=== PATIENT | male | born 1985 | race Caucasian/White ===

== ENCOUNTER → 2017-07-20 | Outpatient (CLI) | payer OTHER ==
[2017-07-20 11:45] LABS: MEAN CORPUSCULAR HEMOGLOBIN 35.6 pg (27.0-33.0); MEAN CORPUSCULAR HGB CONC 35.6 g/dl (32.0-36.5); RED CELL DISTRIBUTION WIDTH 11.9 % (11.5-14.5)
[2017-07-20 12:20] LABS: ALBUMIN 3.9 GM/DL (3.2-5.2); ALBUMIN/GLOBULIN RATIO 1.22 (1.00-1.93); ALKALINE PHOSPHATASE 52 U/L (45-117); ALT/SGPT 26 U/L (12-78); ANION GAP 7 MEQ/L (8-16); AST/SGOT 17 U/L (15-37); BILIRUBIN,TOTAL 0.3 MG/DL (0.2-1.0); BLOOD UREA NITROGEN 20 MG/DL (7-18); CALCIUM LEVEL 8.8 MG/DL (8.5-10.1); CARBON DIOXIDE LEVEL 28 MEQ/L (21-32); CHLORIDE LEVEL 106 MEQ/L (98-107); CHOLESTEROL LEVEL 196 MG/DL (<200); CREATININE FOR GFR 1.23 MG/DL (0.70-1.30); GLOMERULAR FILTRATION RATE > 60.0 (>60); GLUCOSE, FASTING 90 MG/DL (70-105); POTASSIUM SERUM 4.4 MEQ/L (3.5-5.1); SODIUM LEVEL 141 MEQ/L (136-145); TOTAL PROTEIN 7.1 GM/DL (6.4-8.2); TRIGLYCERIDES LEVEL 119 MG/DL (<150)
--- NOTE | 2017-07-20 20:47 | ECGEPIP ---
Stationary ECG Study [facility] Test Date: 2017-07-20 Pat Name: CHET SINGH Department: Room: - Gender: M Finance Teacher: JAI : 1985 Requested By: Sylvia Mock Order Number: [id number] Reading MD: Scott Catalan Measurements Intervals [place] Rate: 57 P: 66 [place]: 169 QRS: 89 QRSD: 106 T: 64 QT: 391 QTc: 383 Interpretive Statements SINUS BRADYCARDIA INCOMPLETE RIGHT BUNDLE BRANCH BLOCK No prior ECG available for comparison at the time of interpretation. Electronically Signed On 07-20-2017 20:47:32 EDT by Scott Catalan
--- NOTE | 2017-07-20 20:52 | REP ---
Clinical: Sciatica. Technique: AP, lateral, bilateral oblique coned-down views of the lumbosacral spine. Comparison: 01/21/2009. Findings: Alignment and lordosis maintained. Vertebral bodies are intact. No acute fracture / compression injury or subluxation. No evidence for spondylolysis or spondylolisthesis. No significant degenerative changes. Impression: Age-appropriate lumbosacral spine radiograph series. If the patient remains symptomatic consider MRI for further investigation. Signed by Toni Diaz MD 07/20/2017 08:45 P
--- NOTE | 2017-07-20 20:53 | REP ---
Clinical: Sciatica and right hip pain. Technique: Neutral and frog lateral views of the right hip. Findings: Mild degenerative changes include increased sclerosis to the acetabular roof with associated superior joint space narrowing and marginal spurring along the superior femoral neck/head margin. No acute fracture dislocation. Surrounding soft tissues are normal. Impression: Mild degenerative changes to the right hip. Signed by Toni Diaz MD 07/20/2017 08:46 P
--- NOTE | 2017-07-20 20:54 | REP ---
Clinical: History of chest pain and sciatica. . Comparison: None . Technique: PA and lateral. Findings: The mediastinum and cardiac silhouette are normal. The lung juarez are clear and without acute consolidation, effusion, or pneumothorax. The skeletal structures are intact and normal. Impression: 1. No acute cardiopulmonary process. Signed by Toni Diaz MD 07/20/2017 08:46 P
== END ==
LOC: M LAB 10:53
PROVIDERS: ATTEND Family Medicine
DX: M54.5 Low back pain (principal)

== ENCOUNTER 2018-10-23 05:11 | Emergency (ER) | payer OTHER ==
[2018-10-23] MEDS: NS 1,000 ML IV (05:30)
[2018-10-23] MEDS: MORPHINE 4 MG/ML 1ML VIAL/SYRINGE (J2270) IV ×2 (05:31→05:41)
[2018-10-23] MEDS ORDERED: ISOVUE-370 76% 100ML VIAL (Q9967) As Ordered (05:40)
[2018-10-23] MEDS: ONDANSETRON 4MG/2ML VIAL (J2405) IV ×2 (05:41→07:29)
[2018-10-23 05:54] LABS: BASO # 0.1 10^3/uL (0.0-0.2); BASO % 0.4 % (0.0-1.0); EOS # 0.2 10^3/uL (0.0-0.50); EOS % 0.9 % (0.0-3.0); HEMATOCRIT 46.5 % (42.0-52.0); HEMOGLOBIN 16.2 g/dl (13.5-17.5); IMMATURE GRANULOCYTE % 1.1 % (0-3.0); LYMPH # 2.1 10^3/uL (1.5-4.5); LYMPH % 11.8 % (24.0-44.0); MEAN CORPUSCULAR HEMOGLOBIN 34.5 pg (27.0-33.0); MEAN CORPUSCULAR HGB CONC 34.8 g/dl (32.0-36.5); MEAN CORPUSCULAR VOLUME 99.1 fl (80.0-96.0); MONO % 5.5 % (0.0-5.0); NEUTROPHILS # 14.1 10^3/uL (1.8-7.7); NEUTROPHILS % 80.3 % (36.0-66.0); PLATELET COUNT, AUTOMATED 291 10^3/uL (150-450); RED BLOOD COUNT 4.69 10^6/uL (4.30-6.10); WHITE BLOOD COUNT 17.6 10^3/uL (4.0-10.0)
[2018-10-23 06:07] LABS: PROTHROMBIN TIME 13.3 SECONDS (12.1-14.4)
[2018-10-23 06:08] LABS: PARTIAL THROMBOPLASTIN TIME 22.4 SECONDS (25.4-37.6)
[2018-10-23 06:23] LABS: ALBUMIN 3.9 GM/DL (3.2-5.2); ALBUMIN/GLOBULIN RATIO 1.11 (1.00-1.93); ALKALINE PHOSPHATASE 64 U/L (45-117); ALT/SGPT 161 U/L (12-78); AMYLASE 81 U/L (25-115); ANION GAP 9 MEQ/L (8-16); AST/SGOT 213 U/L (7-37); BILIRUBIN,DIRECT < 0.1 MG/DL (0.0-0.2); BILIRUBIN,TOTAL 0.3 MG/DL (0.2-1.0); BLOOD UREA NITROGEN 13 MG/DL (7-18); CALCIUM LEVEL 8.3 MG/DL (8.5-10.1); CARBON DIOXIDE LEVEL 25 MEQ/L (21-32); CHLORIDE LEVEL 108 MEQ/L (98-107); CPK CREATINE PHOSPHOKINASE 516 U/L (39-308); CREATININE FOR GFR 1.55 MG/DL (0.70-1.30); ETHYL ALCOHOL (ETHANOL) 0.228 % (0.000-0.010); GLOMERULAR FILTRATION RATE 54.6 (>60); GLUCOSE, FASTING 121 MG/DL (70-100); LIPASE 335 U/L (73-393); MB/CK RELATIVE INDEX 0.66 (< OR =4); POTASSIUM SERUM 4.1 MEQ/L (3.5-5.1); SODIUM LEVEL 142 MEQ/L (136-145); TOTAL PROTEIN 7.4 GM/DL (6.4-8.2); TROPONIN I < 0.02 NG/ML (< 0.10)
[2018-10-23] MEDS: ADACEL/BOOSTRIX VACCINE (DIPHTH/PERTUSS/ACELL/TETANUS)0.5ML SYR (90715) IM (06:26)
[2018-10-23] MEDS: fentaNYL 100 MCG/2 ML INJECTION (J3010) IV ×2 (06:36→07:29)
== END 2018-10-23 08:10 | disposition short-term general hospital (02) ==
LOC: M ED 05:11
DX: S72.341A Displaced spiral fracture of shaft of right femur, initial encounter for closed fracture (principal); S27.0XXA Traumatic pneumothorax, initial encounter; S22.43XA Multiple fractures of ribs, bilateral, initial encounter for closed fracture; S01.111A Laceration without foreign body of right eyelid and periocular area, initial encounter; V47.5XXA Car driver injured in collision with fixed or stationary object in traffic accident, initial encounter; W22.11XA Striking against or struck by driver side automobile airbag, initial encounter; I49.9 Cardiac arrhythmia, unspecified; Z72.89 Other problems related to lifestyle
CPT/HCPCS: J2270

== ENCOUNTER → 2019-03-29 | Outpatient (CLI) | payer MEDICAID | LOC: M OUTALCOH 08:12 | PROVIDERS: ATTEND Psychiatry & Neurology Psychiatry | DX: Z03.89 Encounter for observation for other suspected diseases and conditions ruled out (principal) ==

== ENCOUNTER 2019-04-05 13:48 | Outpatient (RCR) | payer MEDICAID | END 2019-04-21 | LOC: M OUTALCOH 13:48 | PROVIDERS: ATTEND Psychiatry & Neurology Psychiatry | DX: Z03.89 Encounter for observation for other suspected diseases and conditions ruled out (principal) ==

== ENCOUNTER 2020-01-13 19:50 | Emergency (ER) | payer MEDICAID, OTHER ==
[~2020-01-13] VITALS: Ht 180.3 cm; Wt 93.2 kg
[2020-01-13 20:14] LABS: VENOUS BASE EXCESS 0.6 (-2.0-2.0); VENOUS HCO3 26.9 MEQ/L (23.0-27.0); VENOUS O2 SATURATION 78.9 % (60.0-80.0); VENOUS PARTIAL PRESSURE CO2 48.7 mmHg (38.0-50.0); VENOUS PARTIAL PRESSURE O2 44.6 mmHg (30.0-50.0); VENOUS STANDARD HCO3 24.4 MEQ/L; VENOUS TOTAL CO2 28.4 MEQ/L (24.0-28.0)
[2020-01-13 20:17] LABS: BASO # 0.1 10^3/uL (0.0-0.2); EOS # 0.2 10^3/uL (0.0-0.5); EOS % 2.8 % (0.0-3.0); HEMATOCRIT 48.3 % (42.0-52.0); HEMOGLOBIN 17.1 g/dl (13.5-17.5); LYMPH # 2.8 10^3/uL (1.5-5.0); LYMPH % 32.8 % (24.0-44.0); MEAN CORPUSCULAR HEMOGLOBIN 33.3 pg (27.0-33.0); MEAN CORPUSCULAR HGB CONC 35.4 g/dl (32.0-36.5); MEAN CORPUSCULAR VOLUME 94.2 fl (80.0-96.0); MONO # 0.8 10^3/uL (0.0-0.8); MONO % 9.1 % (0.0-5.0); NEUTROPHILS # 4.7 10^3/uL (1.5-8.5); PLATELET COUNT, AUTOMATED 285 10^3/uL (150-450); RED BLOOD COUNT 5.13 10^6/uL (4.30-6.10); WHITE BLOOD COUNT 8.7 10^3/uL (4.0-10.0)
[2020-01-13] MEDS: MORPHINE 4 MG/ML 1ML VIAL/SYRINGE (J2270) IV PRN ×4 (20:25→21:55)
[2020-01-13] MEDS ORDERED: NS 1,000 ML IV ONE (20:30)
[2020-01-13] MEDS ORDERED: ONDANSETRON 4MG/2ML VIAL (J2405) IV ONE (20:30)
[2020-01-13 20:48] LABS: ALT/SGPT 33 U/L (12-78); BLOOD UREA NITROGEN 9 MG/DL (7-18); CALCIUM LEVEL 8.8 MG/DL (8.5-10.1); CARBON DIOXIDE LEVEL 28 MEQ/L (21-32); CHLORIDE LEVEL 107 MEQ/L (98-107); CK-MB VALUE MASS < 1.0 NG/ML (<3.6); CPK CREATINE PHOSPHOKINASE 163 U/L (39-308); CREATININE FOR GFR 1.25 MG/DL (0.70-1.30); GLOMERULAR FILTRATION RATE > 60.0 (>60); GLUCOSE, FASTING 110 MG/DL (70-100); MB/CK RELATIVE INDEX 0.61 (< OR =4); POTASSIUM SERUM 3.5 MEQ/L (3.5-5.1); SODIUM LEVEL 141 MEQ/L (136-145)
[2020-01-13 20:49] LABS: ALBUMIN 4.5 GM/DL (3.2-5.2); BILIRUBIN,DIRECT 0.1 MG/DL (0.0-0.2); BILIRUBIN,TOTAL 0.3 MG/DL (0.2-1.0); ETHYL ALCOHOL (ETHANOL) 0.274 % (0.000-0.010); NT-PRO BNP 48 PG/ML (<125); THYROXINE (T4) 9.7 UG/DL (4.5-12.0); TOTAL PROTEIN 7.8 GM/DL (6.4-8.2); TROPONIN I < 0.02 NG/ML (< 0.10)
[2020-01-13] MEDS ORDERED: TRIPOIN9 TOP (21:59)
[2020-01-13] MEDS ORDERED: PERC5TAB12 PO (21:59)
[2020-01-13] MEDS ORDERED: ERYT1OIN26 OP (21:59)
[2020-01-13] MEDS ORDERED: ERYTHROMYCIN OPHTH OINT OU ONE (22:00)
[2020-01-13] MEDS ORDERED: NEOSPORIN TOP OINT 15GM TOP ONE (22:00)
[2020-01-13] MEDS ORDERED: OXYCODONE/APAP 5MG/325MG(BULK FOR ED) 1 TABLET PO ONE (22:00)
[2020-01-13 22:28] VITALS: BP 116/63
--- NOTE | 2020-01-14 08:47 | REP ---
Portable chest, a 02:00 p.m., single AP view with the patient semi upright: Comparison is the PA and lateral chest dated 07/20/2017. The lung juarez are clear. The cardiac size is normal. The tierra, mediastinum, and skeletal structures are unremarkable. Impression: Negative portable chest. There is no interval change. Electronically Signed by Alex Atkins MD 01/14/2020 08:37 A
== END 2020-01-13 22:46 | disposition home or self-care (01) ==
LOC: M ED 19:50
DX: T20.20XA Burn of second degree of head, face, and neck, unspecified site, initial encounter (principal); T31.0 Burns involving less than 10% of body surface; X08.8XXA Exposure to other specified smoke, fire and flames, initial encounter; Y92.018 Other place in single-family (private) house as the place of occurrence of the external cause
CPT/HCPCS: 16000; 71045; 80048; 80076; 82375; 82550; 82553; 82803; 83880; 84436; 84443; 85025; 93041; 96374; 96376; 99291; G0480; J2270; J2405

== ENCOUNTER → 2022-01-08 | Outpatient (CLI) | payer OTHER ==
[~2022-01-08] MED LIST: ERYT5OIN25 OP; PERC5TAB12 PO; TRIPOIN9 TOP
[2022-01-08 15:56] LABS: HEMATOCRIT 44.2 % (42.0-52.0); HEMOGLOBIN 15.2 g/dl (13.5-17.5); MEAN CORPUSCULAR HEMOGLOBIN 32.6 pg (27.0-33.0); MEAN CORPUSCULAR HGB CONC 34.4 g/dl (32.0-36.5); MEAN CORPUSCULAR VOLUME 94.8 fl (80.0-96.0); PLATELET COUNT, AUTOMATED 294 10^3/uL (150-450); RED BLOOD COUNT 4.66 10^6/uL (4.30-6.10); WHITE BLOOD COUNT 7.4 10^3/uL (4.0-10.0)
[2022-01-08 16:18] LABS: HEMOGLOBIN A1c 5.2 %
[2022-01-08 16:29] LABS: ALBUMIN 4.1 GM/DL (3.2-5.2); ALT/SGPT 25 U/L (12-78); BILIRUBIN,TOTAL 0.5 MG/DL (0.2-1.0); BLOOD UREA NITROGEN 14 MG/DL (7-18); CARBON DIOXIDE LEVEL 31 MEQ/L (21-32); CHLORIDE LEVEL 103 MEQ/L (98-107); CHOLESTEROL LEVEL 186 MG/DL (<200); CREATININE FOR GFR 1.21 MG/DL (0.70-1.30); GLOMERULAR FILTRATION RATE > 60.0 (>60); GLUCOSE, FASTING 108 MG/DL (70-100); HDL CHOLESTEROL 34 MG/DL (>40); LDL CHOLESTEROL 121 MG/DL (<100); NON-HDL-C 152 MG/DL; PROSTATIC SPECIFIC AG MONITOR 0.48 NG/ML (< 4.00); SODIUM LEVEL 139 MEQ/L (136-145); TOTAL PROTEIN 7.1 GM/DL (6.4-8.2); TRIGLYCERIDES LEVEL 156 MG/DL (<150)
[2022-01-08 17:16] LABS: TESTOSTERONE 320 NG/DL (241-827)
== END ==
LOC: M WUC 13:02
PROVIDERS: ATTEND Family Medicine
DX: I10 Essential (primary) hypertension (principal); M54.30 Sciatica, unspecified side; J44.9 Chronic obstructive pulmonary disease, unspecified